=== PATIENT | female | born 1970 | race Caucasian/White ===

== ENCOUNTER → 2019-06-08 | Outpatient (CLI) | payer BC, OTHER ==
[2014-05-19 00:15] VITALS: BP 114/74
--- NOTE | 2019-06-08 15:35 | KCIC ---
CERVICAL SPINE WO CONTRAST History: Cervicalgia. Bilateral upper extremity radiculopathy. Technique: Multiplanar, multi sequential noncontrast MR imaging was performed of the cervical spine. Comparison: None Findings: Motion degraded examination. Minimal retrolisthesis C5 on C6. Otherwise, normal alignment. Normal vertebral body height. No fracture. No pathologic marrow replacing process. Degenerative endplate changes C5-C6. No pathologic signal abnormality within the cervical spinal cord. Partially imaged right posterior subcutaneous upper back T2 hyperintense lesion measures 2.2 x 1.3 cm C2-C3: No canal or neuroforaminal narrowing. C3-C4: Small posterior disc osteophyte complex. No canal or neuroforaminal narrowing. C4-C5: Small posterior disc osteophyte complex. Minimal indention of ventral thecal sac. Minimal cord flattening. No canal or neuroforaminal narrowing. C5-C6: Retrolisthesis. Posterior disc osteophyte complex. Partial effacement of ventral CSF space. Mild cord flattening. Dorsal CSF spaces preserved. No canal narrowing. Left uncovertebral and facet arthropathy. Mild to moderate left neural foraminal narrowing. No right neuroforaminal narrowing. C6-C7: Small posterior disc osteophyte complex. No canal narrowing. Left uncovertebral and facet arthropathy. Mild left neural foraminal narrowing. No right neuroforaminal narrowing. C7-T1: No canal or neuroforaminal narrowing. Impression: 1. Motion degraded examination. 2. Mild multilevel cervical spondylosis most prominent C5-C6 with mild cord flattening. No high-grade canal or neuroforaminal narrowing. 3. Multilevel neural foraminal narrowing most prominent left C5-C6. Electronically signed by: Lowell Garcia DO (06/08/2019 3:32 PM) [id number]
== END | disposition home or self-care (01) ==
LOC: KCIC MRI 11:18
PROVIDERS: ATTEND Physician Assistant Medical
DX: M48.02 Spinal stenosis, cervical region (principal); M47.812 Spondylosis without myelopathy or radiculopathy, cervical region; M25.78 Osteophyte, vertebrae; M12.88 Other specific arthropathies, not elsewhere classified, other specified site
CPT/HCPCS: 72141